=== PATIENT | female | born 1970 | race Caucasian/White ===

== ENCOUNTER 2025-02-18 17:26 | Emergency (ER) | payer OTHER ==
[2025-02-18] MEDS: Diphtheria,Pertussis(Acell),Tetanus Vaccine 0.5 ML Syringe IM ONE (18:57)
[2025-02-18] MEDS: Lidocaine 1% 5 ML VIAL INJECT ONE (18:58)
[2025-02-18] MEDS: Bacitracin Oint 1 GM U/D Packet TOP ONE (18:58)
== END 2025-02-18 19:56 | disposition home or self-care (01) ==
LOC: JP.ED 17:26
DX: S01.81XA Laceration without foreign body of other part of head, initial encounter (principal); Z23 Encounter for immunization; Z88.1 Allergy status to other antibiotic agents; Z88.8 Allergy status to other drugs, medicaments and biological substances; Z91.09 Other allergy status, other than to drugs and biological substances; Z90.49 Acquired absence of other specified parts of digestive tract; W22.8XXA Striking against or struck by other objects, initial encounter
CPT/HCPCS: 12013; 90471; 90715; 99282; J2003